=== PATIENT | male | born 1945 | race Native Hawaiian/Other Pacific Islander ===

== ENCOUNTER 2022-12-18 16:58 | Emergency (ER) | payer OTHER ==
[~2022-12-18] VITALS: Ht 188 cm; Wt 110.7 kg
[2022-12-18 16:58] VITALS: BP 143/79; TEMP 98
[2022-12-18 17:28] LABS: PLATELET COUNT 298 K/uL (142-355)
[2022-12-18 17:38] LABS: POTASSIUM 3.6 mmol/L (3.6-5.2); SODIUM 139 mmol/L (136-145)
[2022-12-18] MEDS ORDERED: FUROSEMIDE80 MG PO (21:36)
[2022-12-18] MEDS ORDERED: CARDIZEM60 MG PO (21:37)
[2022-12-18] MEDS ORDERED: MIDODRINE10 MG PO (21:38)
[2022-12-18] MEDS ORDERED: LIDOPATCH TOP (21:39)
[2022-12-18] MEDS ORDERED: TYLENOL325 MG PO (21:41)
[2022-12-18] MEDS ORDERED: HYDROCODONE BIT1 TA1 PO (21:42)
[2022-12-18] MEDS ORDERED: TRAMADOL HYDROC50 MG PO (21:43)
[2022-12-18] MEDS ORDERED: FINA5TAB2 PO (21:44)
[2022-12-18] MEDS ORDERED: MAGNESIUM 400 M1 TAB PO (21:46)
[2022-12-18] MEDS ORDERED: ASPIRIN 8181 MG PO (21:47)
[2022-12-18] MEDS ORDERED: RIVASTIGMI4.6 MG/24 TD (21:48)
[2022-12-18] MEDS ORDERED: RIVASTIGMI9.5 MG/24 TD (21:50)
[2022-12-18] MEDS ORDERED: NUPLAZID34 MG PO (21:50)
[2022-12-18] MEDS ORDERED: POTASSIUM CHLO20 ME2 PO (21:51)
[2022-12-18] MEDS ORDERED: ROPINIROLE5 MG PO (21:52)
[2022-12-18] MEDS ORDERED: CARB25TA29 PO (21:54)
[2022-12-18] MEDS ORDERED: MELATONIN MAXIMU5 MG PO (21:55)
[2023-01-01] MEDS ORDERED: ACET-206 PO (11:19)
[2023-01-01] MEDS ORDERED: ASPI81TA4 PO (11:19)
[2023-01-01] MEDS ORDERED: CARB25TA29 PO (11:20)
[2023-01-01] MEDS ORDERED: DIPH25CA90 PO (11:20)
[2023-01-01] MEDS ORDERED: DILT30TA24 PO (11:20)
[2023-01-01] MEDS ORDERED: FURO40TA93 PO (11:21)
[2023-01-01] MEDS ORDERED: FINA5TAB2 PO (11:21)
[2023-01-01] MEDS ORDERED: ESCI10TA PO (11:21)
[2023-01-01] MEDS ORDERED: LIDOPATCH TOP (11:21)
[2023-01-01] MEDS ORDERED: POTA20TA4 PO (11:22)
[2023-01-01] MEDS ORDERED: EXELON9.5 MG/24 TOP (11:22)
[2023-01-01] MEDS ORDERED: MIDODRINE5 MG PO (11:22)
[2023-01-01] MEDS ORDERED: MAGN400T4 PO (11:22)
== END 2022-12-18 18:05 | disposition still patient (30) ==
LOC: ED 16:58
PROVIDERS: Family Medicine
DX: F03.90 Unspecified dementia, unspecified severity, without behavioral disturbance, psychotic disturbance, mood disturbance, and anxiety (principal); Z72.51 High risk heterosexual behavior; Z02.79 Encounter for issue of other medical certificate
CPT/HCPCS: 80053; 81002; 85027; 87635; 93005; 99283; U0003